=== PATIENT | female | born 1990 | race Caucasian/White ===

== ENCOUNTER → 2018-11-30 | Outpatient (REF) | payer BC | LOC: M LAB REF 16:29 | PROVIDERS: ATTEND Nurse Practitioner Women's Health | DX: Z34.03 Encounter for supervision of normal first pregnancy, third trimester (principal); Z3A.00 Weeks of gestation of pregnancy not specified ==

== ENCOUNTER → 2019-05-05 | Outpatient (REF) | payer BC ==
[2019-05-05 14:27] LABS: APPEARANCE, URINE HAZY (CLEAR); BACTERIA, URINE AUTO 1+ (NEGATIVE); BILIRUBIN, URINE AUTO NEGATIVE (NEGATIVE); BLOOD, URINE BLOOD NEGATIVE (NEGATIVE); COLOR, URINE YELLOW (YELLOW); GLUCOSE, URINE (UA) AUTO NEGATIVE (NEGATIVE); KETONE, URINE AUTO NEGATIVE (NEGATIVE); LEUKOCYTE ESTERASE, URINE AUTO 1+ (NEGATIVE); MUCUS, URINE SMALL (NEGATIVE); NITRITE, URINE AUTO NEGATIVE (NEGATIVE); PROTEIN, URINE AUTO NEGATIVE (NEGATIVE); RBC, URINE AUTO 3 /HPF (0-3); SPECIFIC GRAVITY URINE AUTO 1.009 (1.002-1.035); SQUAMOUS EPITHELIAL CELL UR AU 5 /HPF (0-6); UROBILINOGEN, URINE AUTO 0.2 mg/dL (0.0-2.0); WBC, URINE AUTO 3 /HPF (0-3)
== END ==
LOC: M LAB REF 13:00
PROVIDERS: ATTEND Physician Assistant
DX: N39.0 Urinary tract infection, site not specified (principal)

== ENCOUNTER → 2020-04-14 | Outpatient (CLI) | payer BC ==
--- NOTE | 2020-04-14 10:38 | REP ---
TWIN OB ULTRASOUND: Real-time sonographic evaluation of the gravid uterus performed. There is a diamniotic, dichorionic twin gestation. Fetus A demonstrates a crown-rump length of 18 mm corresponding to the estimated gestational age of 8 weeks 2 days, EDC 11/22/2020. heart rate is 167 beats per minute. Fetus B demonstrates a mean sac diameter of 14 mm corresponding to 5 weeks 4 days, gestational age and a crown-rump length of 14 mm corresponding to 7 weeks 5 days gestational age. No heart motion is detected compatible with demise of fetus B. No subchorionic hemorrhage is seen. Blood flow is seen in each ovary with duplex Doppler evaluation, with no torsion. Cystic structure left ovary may represent a corpus luteum with a maximum diameter of 2.1 cm.
== END ==
LOC: M WHC 08:16
PROVIDERS: ATTEND Advanced Practice Midwife
DX: O30.041 Twin pregnancy, dichorionic/diamniotic, first trimester (principal); Z3A.01 Less than 8 weeks gestation of pregnancy

== ENCOUNTER → 2020-04-25 | Outpatient (REF) | payer BC ==
[2020-04-25 13:05] LABS: HEMATOCRIT 38.9 % (36.0-47.0); HEMOGLOBIN 12.7 g/dl (12.0-15.5); MEAN CORPUSCULAR HEMOGLOBIN 28.1 pg (27.0-33.0); MEAN CORPUSCULAR HGB CONC 32.6 g/dl (32.0-36.5); MEAN CORPUSCULAR VOLUME 86.1 fl (80.0-96.0); PLATELET COUNT, AUTOMATED 300 10^3/uL (150-450); RED BLOOD COUNT 4.52 10^6/uL (4.00-5.40)
[2020-04-25 15:15] LABS: CHLAMYDIA DNA AMPLIFICATION NEGATIVE (NEGATIVE); GC DNA AMPLIFICATION NEGATIVE (NEGATIVE)
[2020-04-26 11:39] LABS: HEPATITIS C VIRUS ABY INDEX 0.1 INDEX (<0.8); HIV 1&2 SCREEN CENTAUR NEGATIVE (NEGATIVE)
== END ==
LOC: M PLALAB 09:33
PROVIDERS: ATTEND Advanced Practice Midwife
DX: O30.041 Twin pregnancy, dichorionic/diamniotic, first trimester (principal); Z3A.00 Weeks of gestation of pregnancy not specified

== ENCOUNTER → 2020-09-05 | Outpatient (REF) | payer BC ==
[2020-09-05 13:44] LABS: HEMATOCRIT 34.5 % (36.0-47.0); HEMOGLOBIN 11.2 g/dl (12.0-15.5); MEAN CORPUSCULAR HEMOGLOBIN 28.7 pg (27.0-33.0); MEAN CORPUSCULAR HGB CONC 32.5 g/dl (32.0-36.5); MEAN CORPUSCULAR VOLUME 88.5 fl (80.0-96.0); PLATELET COUNT, AUTOMATED 274 10^3/uL (150-450); WHITE BLOOD COUNT 9.9 10^3/uL (4.0-10.0)
== END ==
LOC: M PLALAB 08:44
PROVIDERS: ATTEND Advanced Practice Midwife
DX: Z34.82 Encounter for supervision of other normal pregnancy, second trimester (principal); Z3A.00 Weeks of gestation of pregnancy not specified
CPT/HCPCS: 36415; 82950; 85027; 86850; 86900; 86901; J2790

== ENCOUNTER → 2020-10-26 | Outpatient (REF) | payer BC | LOC: M SFHCWAGY 13:23 | PROVIDERS: ATTEND Advanced Practice Midwife | DX: O99.213 Obesity complicating pregnancy, third trimester (principal); Z3A.00 Weeks of gestation of pregnancy not specified; E66.9 Obesity, unspecified ==

== ENCOUNTER 2020-11-19 16:50 | Inpatient (IN) | payer BC ==
[~2020-11-19] VITALS: Ht 162.6 cm; Wt 106.0 kg
[2020-11-19 17:24] VITALS: BP 130/86
[2020-11-19] MEDS ORDERED: PRENTAB9 PO (17:25)
--- OUTSIDE RECORDS SUMMARY | 2020-11-19 18:48 | CCD ---
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 Name Role Phone Elida Rios Unavailable PROBLEMS Type Condition ICD9-CM Code [id number] Code Onset Dates Condition S tatus SNOMED Code Notes Problem Supervision of other normal Z34.80 Ac tive 997284859 Problem Obesity affecting in third trimester O99 .213 Active [id number] ALLERGIES Allergen (clinical drug ingredient) Drug/Non Drug Allergy do cumented on EMR Reaction Allergy Type Onset Date Status erythromycin Erythromycin([facility] Code:[address]-11) hives Drug All ergy Active ENCOUNTERS from 1988 to 2020-10-25 Encounter Location Date Provider Diagnosis [facility] [address] [place] [address] Oct, Elida Rios 35 weeks gestation o f Z3A.35 and Obesity affecting in third trimester O99.213 IMMUNIZATIONS Vaccine Route Administration Date Status RHo (D) Immune Globulin 300mcg/1.5mL (RhoGAM) IM Intramuscular D ec 2019 Administered TDAP 0.5mL (Boostrix) IM Intramuscular Sep 19, 2020 Administe red Influenza (6mo & up) Fluzone IM Intramuscular Jul 11, 2020 Pe nding SOCIAL HISTORY Tobacco Use: Social History Observation Description Date Details (start date - stop date) Never Smoker Sex Assigned At : Social History Observation Description Sex Assigned At Unknown Education: Question Answer Notes Level of Education: Master's Degree Domestic Violence: Question Answer Notes Status: No history of abuse Sexual Hx: Question Answer Notes Had sex in the last 12 months (vaginal, oral, or anal)? Yes Have you ever had an STD? No with Women only Use protection? No Alcohol Screening: Question Answer Notes Did you have a drink containing alcohol in the past year? Ye s Points 2 Interpretation Negative How often did you have six or more drinks on one occas ion in the past year? Never (0 points) How many drinks did you have on a typica l day when you were drinking in the past year? 1 or 2 (0 points) How often did you have a drink containing alcohol in t he past year? Two to four times a month (2 points) Tobacco Use: Question Answer Notes Are you a: never smoker REASON FOR REFERRAL No Information VITAL SIGNS Weight 231.8 lbs Oct, Height 64 in Oct, BMI 39.788 kg/m2 Oct, Blood pressure systolic 116 mm Hg Oct, Blood pressure diastolic 72 mm Hg Oct, MEDICATIONS Medication SIG (Take, Route, Frequency, Duration) Notes Start Da te End Date Status 27-1 MG 1 tablet Orally Once a day Active Zofran 4 MG 1 tablet Orally every 8 hours as needed for nausea Not-Taking PROCEDURES No Information RESULTS No Results REASON FOR VISIT 2WK PN MEDICAL (GENERAL) HISTORY Type Description Date Medical History obesity Surgical History wisdom teeth extract Hospitalization History childbirth Goals Section No Information Health Concerns No Information MEDICAL EQUIPMENT No Information MENTAL STATUS No Information FUNCTIONAL STATUS No Information ASSESSMENTS Encounter Date Diagnosis Assessment Notes Treatment Notes Treatm ent Clinical Notes Oct, 35 weeks gestation of (ICD-10 - Z3A.35 ) Oct, Obesity affecting in [facility] (ICD-10 - O99.213) PLAN OF TREATMENT Next Appt Details 1 Week Reason:PN Provider Name:Elida Ladonna Rios, 2020-10-26 08:00:00 AM, [address] [place], [address], Follow Up:1 WeekPN Insurance Providers Payer Name Payer Address Payer Phone Insured Name Patient Relati onship to Insured Coverage Start Date Coverage End Date BCBS [place] PPO [phone] [facility] [employer] [place] [address] CHAPO GIFFORD
--- OUTSIDE RECORDS SUMMARY | 2020-11-19 18:48 | CCD ---
Author Author [facility] Organization [facility] Address Unknown Phone Unavailable Support Name Relationship Address Phone STERLING GIFFORD Next Of Kin Unknown JOSEY GIFFORD Next Of Kin [address] [place] [address] TANYA GIFFORD Next Of Kin Unknown CHAPO LABOY Next Of Kin [address] [id number] JOSEY GIFFORD ECON [address] [place] [address] Unavailable Re-disclosure Warning The records that you are about to access may contain information from federally-assisted alcohol or drug abuse programs. If such information is present, then the following federally mandated warning applies: This information has been disclosed to you from records protected by federal confidentiality rules (42 CFR part 2). The federal rules prohibit you from making any further disclosure of this information unless further disclosure is expressly permitted by the written consent of the person to whom it pertains or as otherwise permitted by 42 CFR part 2. A general authorization for the release of medical or other information is NOT sufficient for this purpose. The Federal rules restrict any use of the information to criminally investigate or prosecute any alcohol or drug abuse patient.The records that you are about to access may contain highly sensitive health information, the redisclosure of which is protected by Article 27-F of the [facility] Public Health law. If you continue you may have access to information: Regarding HIV / AIDS; Provided by facilities licensed or operated by the [facility] Office of Mental Health; or Provided by the [facility] Office for People With Developmental Disabilities. If such information is present, then the following [facility] mandated warning applies: This information has been disclosed to you from confidential records which are protected by state law. State law prohibits you from making any further disclosure of this information without the specific written consent of the person to whom it pertains, or as otherwise permitted by law. Any unauthorized further disclosure in violation of state law may result in a fine or chcf sentence or both. A general authorization for the release of medical or other information is NOT sufficient authorization for further disc losure. Family History Family Member Name Family Member Gender Family Member Status Date o f Status Description Data Source(s) Unknown Unknown Problem MEDENT ([facility]) Unknown Female Problem MEDENT ([facility]) Encounters Encounter Providers Location Date Indications Data Source(s ) ( ESTOB) [facility] [address] [place] [address] 10/26/2020 12:00:00 AM EST eCW1 ([facility]) ( ESTOB) [facility] [address] [place] [address] 10/19/2020 12:00:00 AM EST eCW1 ([facility]) ( ESTOB) [facility] [address] [place] [address] 10/03/2020 12:00:00 AM EST eCW1 ([facility]) ( ESTOB) [facility] [place] [address] [place] [address] 09/19/2020 12:00:00 AM EST eCW1 ([facility]) ( ESTOB) [facility] [address] [place] [address] 09/05/2020 12:00:00 AM EST eCW1 ([facility]) ( ESTOB) [facility] [address] [place] [address] 08/08/2020 12:00:00 AM EST eCW1 ([facility]) ( ESTOB) [facility] [place] [address] [place] [address] 07/11/2020 12:00:00 AM EDT eCW1 ([facility]) Immunizations Vaccine Date Status Description Data Source(s) Tdap 09/19/2020 08:40:00 AM EST completed e CW1 ([facility]) Tdap 09/19/2020 08:40:00 AM EST completed e CW1 ([facility]) Tdap 09/19/2020 08:40:00 AM EST completed e CW1 ([facility]) Tdap 09/19/2020 08:40:00 AM EST completed e CW1 ([facility]) RHo (D) Immune Globulin 300mcg/1.5mL (RhoGAM) 09/19/2020 08: 33:00 AM EST completed eCW1 ([facility]) RHo (D) Immune Globulin 300mcg/1.5mL (RhoGAM) 09/19/2020 08: 33:00 AM EST completed eCW1 ([facility]) RHo (D) Immune Globulin 300mcg/1.5mL (RhoGAM) 09/19/2020 08: 33:00 AM EST completed eCW1 ([facility]) RHo (D) Immune Globulin 300mcg/1.5mL (RhoGAM) 09/19/2020 08: 33:00 AM EST completed eCW1 ([facility]) INFLUENZA VIRUS VACCINE QUADRIVAL [id number](6 MOS AND UP)/PF 10/05/2019 12:00:00 AM EST completed [facility] Medications Medication Brand Name Start Date Product Form Dose Route Admi nistrative Instructions Pharmacy Instructions Status Indications Reaction Description Data Source(s) 0.35 mg 02/08/2019 12:00:00 AM EDT tablet 84 TAKE ONE TABLET BY MOUTH EVERY DAY TAKE ONE TABLET BY MOUTH EVERY DAY SOLD: 09/27/2019 [facility] Insurance Providers Payer name Policy type / Coverage type Policy ID Covered constitution party ID Covered constitution party's relationship to green Policy Green Plan Information BCBS [place] PPO [phone] [id number] SP [id number] BCBS [place] PPO [phone] [id number] SP [id number] EXCELLUS BCBS B [id number] S [id number] EXCELLUS [facility] [id number] 18 [id number] Excell[employer] [facility] Commercial [id number] Self [id number] BLUE CROSS BLUE SHIELD -O/P BS [id number] 18 [id number] Excell[employer] CN[facility] Commercial [id number] Self [id number] BLUE CROSS BLUE SHIELD -PHYSICIAN BS [id number] 18 [id number] BLUE CROSS BLUE SHIELD -I/P BS [id number] 18 [id number] Excell[employer] [facility] Commercial [id number] Self [id number] Excell[employer] [facility] [id number] Self [id number] Excell[employer] [facility] Commercial [id number] Self [id number] BCBS/[employer]cell[employer] Commercial [id number] Self [id number] BCBS/[employer] Commercial [id number] Self [id number] [id number] Excell[employer] [facility] Commercial [id number] Self [id number] Excell[employer] [facility] [facility] Commercial [id number] Self [id number] [employer] [facility] Commercial [id number] Self [id number] BLUE CROSS BLUE SHIELD -O/P [id number] 18 [id number] BLUE CROSS BLUE SHIELD -O/P [id number] 18 [id number] Excell[employer] CNY Blueshield Commercial Self EXCELLUS CNY [facility] BS [id number] 18 [id number] BCBS/Excell[employer] Commercial Self BLUE CROSS BLUE SHIELD -CLINIC [id number] 1 8 [id number] BLUE CROSS BLUE SHIELD -CLINIC [id number] 1 8 [id number] [facility]- [id number] 18 [id number] [facility] [id number] 1 8 [id number] Problems, Conditions, and Diagnoses Code Display Name Description Problem Type Effective Dates Data Source(s) E66.01 [id number] Morbid (severe) obesity due to excess adriana ories Problem 10/26/2020 12:00:00 AM EST eCW1 ([facility]) Z68.41 154151608 BMI 40.0-44.9, adult Problem 10/26/2020 12:0 0:00 AM EST eCW1 ([facility]) O99.213 [id number] Obesity affecting in third trim thiago Problem 10/19/2020 12:00:00 AM EST eCW1 ([facility]) Z34.80 care Supervision of other normal Mary ling 03/21/2020 12:00:00 AM EDT eCW1 ([facility]) Surgeries/Procedures Procedure Description Date Indications Data Source(s) NONSTRESS TEST 10/03/2020 12:00:00 AM EST eCW1 ([facility]) Injection: RhoGAM 300mcg/1.5mL IM (Rho [D] Immune Globulin H uman) 09/19/2020 12:00:00 AM EST eCW1 ([facility]) Immunization: Boostrix 0.5mL IM (TDAP) 09/19/2020 12:0 0:00 AM EST eCW1 ([facility]) INFLUENZA VIRUS VACC SPLIT PRSRV FREE 3 YRS/> IM 07/11 12:00:00 AM EDT eCW1 ([facility]) Results ID Date Data Source GROUP B STREP CULTURE 10/26/2020 12:00:00 AM EST eCW1 ([facility]) Name Value Range Interpretation Code Description Data Destiny rce(s) Supporting Document(s) GROUP B STREP CULTURE eCW1 ([facility]) ID Date Data Source [id number] 07/04/2020 12:00:00 AM EDT [facility] ology Imaging Viri Norman Cnm Patient Name: BLAKE GIFFORD [facility] 1990[facility] [address] Date of Exam: 07/04/2020PH#: Fax: [phone] EXAM: US OB 2ND & 3RD TRIMESTER, COMPLETE- SINGLE FETUSCLINICAL INFORMATION: Supervision of . 2, Para 1LMP: 02/12/2020 = 20 weeks 3 days, AR[place](LMP) = 11/18/2020Today's sono findings = 20 weeks 3 days, [place] (today's sono) = 11/18/2020Fetal Number: SingletonFetal Position: VertexFetal Heart Rate: 139 BPMPlacental Position: Anterior, Grade 1Amniotic Fluid Volume: NormalCervix Length: 5.2 cmFETAL MEASUREMENTS:BPD: 4.7 cm = 20 weeks 2 daysHC: 17.7 cm = 20 weeks 1 dayAC: 14.9 cm = 20 weeks 1 dayFL: 3.3 cm = 20 weeks 3 daysHL: 3.3 cm = 21 weeks 1 dayEstimated Weight: 342 grams, 12 ounces, 41st percentileThe following structures are visualized and are unremarkable:Cranium, cavum, cerebellum, posterior fossa- cisterna magna, choroid plexus,midline falx, lateral ventricles, orbits, face- profile, face-lips/mouth,neck, 4-chamber heart, RVOT, LVOT, diaphragm, stomach, kidneys, bladder,abdominal wall, cord insertion, umbilical arteries, 3-vessel cord, colorDoppler, spine and upper and lower extremities.Accredited by the [employer] in Obstetrical Ultrasound.JOHNNY Branham/Tra you for referring CHAPO GIFFORD to our office. Electronically Signed - MAYLIN JACKSON DO 07/04/20 16:28 Name Value Range Interpretation Code Description Data Destiny rce(s) Supporting Document(s) Procedure Social History Code Duration Value Status Description Data Source(s ) Smoking 10/26/2020 12:00:00 AM EST Never Smoker completed Never S moker eCW1 ([facility]) Smoking 10/21/2020 12:00:00 AM EST Never Smoker completed Never S moker eCW1 ([facility]) Smoking 10/02/2020 12:00:00 AM EST Never Smoker completed Never S moker eCW1 ([facility]) Smoking 09/18/2020 12:00:00 AM EST Never Smoker completed Never S moker eCW1 ([facility]) Smoking 08/30/2020 12:00:00 AM EST Never Smoker completed Never S moker eCW1 ([facility]) Smoking 08/08/2020 12:00:00 AM EST Never Smoker completed Never S moker eCW1 ([facility]) Smoking 08/08/2020 12:00:00 AM EST Never Smoker completed Never S moker eCW1 ([facility]) Vital Signs ID Date Data Source UNK Name Value Range Interpretation Code Description Data Source(s) Diastolic blood pressure 76 mm[Hg] 76 mm[Hg] eCW1 ([facility]) Systolic blood pressure 124 mm[Hg] 124 mm[Hg] e CW1 ([facility]) Body mass index (BMI) [Ratio] 40.097 kg/m2 40.0 97 kg/m2 W1 ([facility]) Body height 64 [in_i] 64 [in_i] eCW1 ([facility]) Body weight 233.6 [lb_av] 233.6 [lb_av] eCW1 ([facility]) Diastolic blood pressure 72 mm[Hg] 72 mm[Hg] eCW1 ([facility]) Systolic blood pressure 116 mm[Hg] 116 mm[Hg] e CW1 ([facility]) Body mass index (BMI) [Ratio] 39.788 kg/m2 39.7 88 kg/m2 eCW1 ([facility]) Body height 64 [in_i] 64 [in_i] eCW1 ([facility]) Body weight 231.8 [lb_av] 231.8 [lb_av] eCW1 ([facility]) Diastolic blood pressure 68 mm[Hg] 68 mm[Hg] eCW1 ([facility]) Systolic blood pressure 114 mm[Hg] 114 mm[Hg] e CW1 ([facility]) Body mass index (BMI) [Ratio] 39.445 kg/m2 39.4 45 kg/m2 eCW1 ([facility]) Body height 64 [in_i] 64 [in_i] eCW1 ([facility]) Body weight 104.24 kg 104.24 kg eCW1 ([facility]) Body weight 229.8 [lb_av] 229.8 [lb_av] eCW1 ([facility]) Diastolic blood pressure 74 mm[Hg] 74 mm[Hg] eCW1 ([facility]) Systolic blood pressure 122 mm[Hg] 122 mm[Hg] e CW1 ([facility]) Body mass index (BMI) [Ratio] 39.067 kg/m2 39.0 67 kg/m2 W1 ([facility]) Body height 64 [in_i] 64 [in_i] eCW1 ([facility]) Body weight 227.6 [lb_av] 227.6 [lb_av] eCW1 ([facility]) Diastolic blood pressure 70 mm[Hg] 70 mm[Hg] eCW1 ([facility]) Systolic blood pressure 120 mm[Hg] 120 mm[Hg] e CW1 ([facility]) Body mass index (BMI) [Ratio] 38.484 kg/m2 38.4 84 kg/m2 W1 ([facility]) Body height 64 [in_i] 64 [in_i] eCW1 ([facility]) Body weight 101.7 kg 101.7 kg eCW1 ([facility]) Body weight 224.2 [lb_av] 224.2 [lb_av] eCW1 ([facility]) Diastolic blood pressure 72 mm[Hg] 72 mm[Hg] eCW1 ([facility]) Systolic blood pressure 120 mm[Hg] 120 mm[Hg] e CW1 ([facility]) Body mass index (BMI) [Ratio] 37.591 kg/m2 37.5 91 kg/m2 eCW1 ([facility]) Body height 64 [in_i] 64 [in_i] eCW1 ([facility]) Body weight 219 [lb_av] 219 [lb_av] eCW1 ([facility]) Diastolic blood pressure 80 mm[Hg] 80 mm[Hg] eCW1 ([facility]) Systolic blood pressure 112 mm[Hg] 112 mm[Hg] e CW1 ([facility]) Body mass index (BMI) [Ratio] 37.042 kg/m2 37.0 42 kg/m2 eCW1 ([facility]) Body height 64 [in_i] 64 [in_i] eCW1 ([facility]) Body weight 97.89 kg 97.89 kg eCW1 ([facility]) Body weight 215.8 [lb_av] 215.8 [lb_av] eCW1 ([facility]) Patient Treatment Plan of Care Planned Activity Planned Date Details Description Data Source (s) New in 2011. IIV4 07/11/2020 12:16:00 PM EDT eCW1 ([facility]) New in 2011. IIV4 07/11/2020 12:16:00 PM EDT eCW1 ([facility]) New in 2011. IIV4 07/11/2020 12:16:00 PM EDT eCW1 ([facility]) New in 2011. IIV4 07/11/2020 12:16:00 PM EDT eCW1 ([facility]) New in 2011. IIV4 07/11/2020 12:16:00 PM EDT eCW1 ([facility]) New in 2011. IIV4 07/11/2020 12:16:00 PM EDT eCW1 ([facility]) New in 2011. IIV4 07/11/2020 12:16:00 PM EDT eCW1 ([facility])
--- OUTSIDE RECORDS SUMMARY | 2020-11-19 18:48 | CCD ---
Author Author [facility] Organization [facility] Address Unknown Phone Unavailable Care Team Providers Care Commodities Manager Name Role Phone Elida Rios Unavailable PROBLEMS Type Condition ICD9-CM Code [id number] Code Onset Dates Condition S tatus W/U Status Risk SNOMED Code Notes Problem BMI 40.0-44.9, adult Z68.41 Active confirmed 202665907 Problem Morbid (severe) obesity due to excess calories E66 .01 Active confirmed 894499443 Problem Supervision of other normal Z34.80 Ac tive confirm 546648651 Problem Obesity affecting in third trimester O99 .213 Active confirmed 303985710113 ALLERGIES Allergen (clinical drug ingredient) Drug/Non Drug Allergy do cumented on EMR Reaction Allergy Type Onset Date Status erythromycin Erythromycin([facility] Code:[address]-02) hives Drug All ergy Active ENCOUNTERS from 1988 to 2020-11-06 Encounter Location Date Provider Diagnosis [facility] [address] [place] [address] Oct, Elida Rios Obesity affecting pr egnancy in third trimester O99.213 ; 36 weeks gestation of Z3A.36 ; Morbid (severe) obesity due to excess calories E66.01 and BMI 40.0-44.9, adult Z68.41 IMMUNIZATIONS Vaccine Route Administration Date Status RHo [...] FOR REFERRAL No Information VITAL SIGNS Weight 233.6 lbs Oct, Height 64 in Oct, BMI 40.097 kg/m2 Oct, Blood pressure systolic 124 mm Hg Oct, Blood pressure diastolic 76 mm Hg Oct, MEDICATIONS Medication SIG (Take, Route, Frequency, Duration) Notes Start Da te End Date Status 27-1 MG 1 tablet Orally Once a day Active Zofran 4 MG 1 tablet Orally every 8 hours as needed for nausea Not-Taking PROCEDURES No Information RESULTS Component Value Reference Range GROUP B STREP CULTURE Reviewed date:10/28/2020 21:33:42 Interpretation: Performing Lab:[facility], [facility] [address] [address] , ,[place] [address] REASON FOR VISIT 1WK PN MEDICAL (GENERAL) HISTORY Type Description Date Medical History obesity Surgical History wisdom teeth extract Hospitalization History childbirth Goals Section No Information Health Concerns No Information MEDICAL EQUIPMENT No Information MENTAL STATUS No Information FUNCTIONAL STATUS No Information ASSESSMENTS Encounter Date Diagnosis Assessment Notes Treatment Notes Treatm ent Clinical Notes Oct, Obesity affecting in [facility] (ICD-10 - O99.213) Oct, 36 weeks gestation of (ICD-10 - Z3A.36 ) Oct, Morbid (severe) obesity due to excess calories ( ICD-10 - E66.01) Oct, BMI 40.0-44.9, adult (ICD-10 - Z68.41) PLAN OF TREATMENT Next Appt Details 1 Week Reason: Provider Name:Rachel Jacques, 2020-11-09 10:00:00 AM, [address] [place], [address], Follow Up:1 Weekprenatal Insurance Providers Payer Name Payer Address Payer Phone Insured Name Patient Relati onship to Insured Coverage Start Date Coverage End Date [employer]BS [facility] [id number] [facility] RANDALL PORTILLO [facility] [id number] CHAPO GIFFORD
--- OUTSIDE RECORDS SUMMARY | 2020-11-19 18:48 | CCD ---
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 Name Role Phone Rachel Jacques Unavailable PROBLEMS Type Condition ICD9-CM Code [id number] Code Onset Dates Condition S tatus SNOMED Code Notes Problem Supervision of other normal Z34.80 Ac tive [id number] ALLERGIES Allergen (clinical drug ingredient) Drug/Non Drug Allergy do cumented on EMR Reaction Allergy Type Onset Date Status erythromycin Erythromycin([facility] Code:[address]-94) hives Drug All ergy Active ENCOUNTERS from 1988 to 2020-08-23 Encounter Location Date Provider Diagnosis [facility] [address] [place] [phone] Aug, Rachel Jacques 24 weeks gestatio n of Z3A.24 ; Other specified related conditions, second trimester O26.892 and Low back pain M54.5 IMMUNIZATIONS Vaccine Route Administration Date Status Influenza (6mo & up) Fluzone IM Intramuscular [...] FOR REFERRAL No Information VITAL SIGNS Weight 219 lbs Aug, Height 64 in Aug, BMI 37.591 kg/m2 Aug, Blood pressure systolic 120 mm Hg Aug, Blood pressure diastolic 72 mm Hg Aug, MEDICATIONS Medication SIG (Take, Route, Frequency, Duration) Notes Start Da te End Date Status Zofran 4 MG 1 tablet Orally every 8 hours as needed for nausea Not-Taking 27-1 MG 1 tablet Orally Once a day Active PROCEDURES No Information RESULTS No Results REASON FOR VISIT 4 WK PN MEDICAL (GENERAL) HISTORY Type Description Date Medical History obesity Surgical History wisdom teeth extract Hospitalization History childbirth Goals Section No Information Health Concerns No Information MEDICAL EQUIPMENT No Information MENTAL STATUS No Information FUNCTIONAL STATUS No Information ASSESSMENTS Encounter Date Diagnosis Assessment Notes Treatment Notes Treatm ent Clinical Notes Aug, 24 weeks gestation of (ICD-10 - Z3A.24 ) Aug, Other specified re lated conditions, second trimester (ICD-10 - O26.892) Aug, Low back pain (ICD-10 - M54.5) PLAN OF TREATMENT Treatment Notes Test Name Order Date CBC - Complete Blood Count 2020-08-23 AB SCREEN (INDIRECT ALONDRA)GEL Antibody Screen 2020-08 Type and Screen (D Rh Antibody Screen) 2020-08-23 Glucose Challenge Test 1 Hour 2020-08-23 RHRHOGAM 2020-08-23 RHOGAM 2020-08-23 Next Appt Details 4 Weeks Reason:return ob Provider Name:Sarah Norman, 2020-09-05 0 8:40:00 AM, [address] [place], [address], Follow Up:4 Weeksreturn ob Insurance Providers Payer Name Payer Address Payer Phone Insured Name Patient Relati onship to Insured Coverage Start Date Coverage End Date BCBS VANIA GALVEZ PPO [phone] [facility] [address] [facility] [id number] [place]FF[place] self
--- OUTSIDE RECORDS SUMMARY | 2020-11-19 18:48 | CCD ---
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 Name Role Phone Sarah Norman Unavailable PROBLEMS Type Condition ICD9-CM Code [id number] Code Onset Dates Condition S tatus SNOMED Code Notes Problem Supervision of other normal Z34.80 Ac tive [id number] ALLERGIES Allergen (clinical drug ingredient) Drug/Non Drug Allergy do cumented on EMR Reaction Allergy Type Onset Date Status erythromycin Erythromycin([facility] Code:[address]-12) hives Drug All ergy Active ENCOUNTERS from 1988 to 2020-09-07 Encounter Location Date Provider Diagnosis [facility] [address] [place] [phone] Sep, Sarah Norman Encounter for superv ision of normal in multigravida in third trimester Z34.83 IMMUNIZATIONS Vaccine Route Administration Date Status Influenza [...] FOR REFERRAL No Information VITAL SIGNS Weight 224.2 lbs Sep, Weight-kg 101.7 kg Sep, Height 64 in Sep, BMI 38.484 kg/m2 Sep, Blood pressure systolic 120 mm Hg Sep, Blood pressure diastolic 70 mm Hg Sep, MEDICATIONS Medication SIG (Take, Route, Frequency, Duration) [...] Notes Treatment Notes Treatm ent Clinical Notes Sep, Encounter for supervision of normal in multigravida in third trimester (ICD-10 - Z34.83) PLAN OF TREATMENT Next Appt Details 2 Weeks Reason: Provider Name:Elysia uBrt, 2020-09 08:20:00 AM, [address] [place], [address], Insurance Providers Payer Name Payer Address Payer Phone Insured Name Patient Relati onship to Insured Coverage Start Date Coverage End Date BCBS [place] PPO [phone] [facility] [place] [address] [facility] [id number] CHAPO GIFFORD
--- OUTSIDE RECORDS SUMMARY | 2020-11-19 18:48 | CCD ---
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 Name Role Phone Sarah Norman Unavailable PROBLEMS Type Condition ICD9-CM Code [id number] Code Onset Dates Condition S tatus SNOMED Code Notes Problem Supervision of other normal Z34.80 Ac tive [id number] ALLERGIES Allergen (clinical drug ingredient) Drug/Non Drug Allergy do cumented on EMR Reaction Allergy Type Onset Date Status erythromycin Erythromycin([facility] Code:[address]-43) hives Drug All ergy Active ENCOUNTERS from 1988 to 2020-10-04 Encounter Location Date Provider Diagnosis [facility] [place] [address] Sep, Sarah Emerson Dichorionic diamniot ic twin in third trimester O30.043 and 32 weeks gestation of Z3A.32 IMMUNIZATIONS Vaccine Route Administration Date Status RHo [...] FOR REFERRAL No Information VITAL SIGNS Weight 229.8 lbs Sep, Weight-kg 104.24 kg Sep, Height 64 in Sep, BMI 39.445 kg/m2 Sep, Blood pressure systolic 114 mm Hg Sep, Blood pressure diastolic 68 mm Hg Sep, MEDICATIONS Medication SIG (Take, Route, Frequency, Duration) Notes Start Da te End Date Status Zofran 4 MG 1 tablet Orally every 8 hours as needed for nausea Not-Taking 27-1 MG 1 tablet Orally Once a day Active PROCEDURES from 1988 to 2020-10-04 Procedure Date Ordered Result Body Site non-stress test 2020-10-03 N/A RESULTS No Results REASON FOR VISIT 4 WK PN MEDICAL (GENERAL) HISTORY Type Description Date Medical History obesity Surgical History wisdom teeth extract Hospitalization History childbirth Goals Section No Information Health Concerns No Information MEDICAL EQUIPMENT No Information MENTAL STATUS No Information FUNCTIONAL STATUS No Information ASSESSMENTS Encounter Date Diagnosis Assessment Notes Treatment Notes Treatm ent Clinical Notes Sep, Dichorionic diamniotic twin in third trimester (ICD-10 - O30.043) Sep, 32 weeks gestation of (ICD-10 - Z3A.32 ) PLAN OF TREATMENT Next Appt Details 2 Weeks Reason: Provider Name:Elida Ladonna Rios, 2020-10-19 09:00:00 AM, [address] [place], [address], Insurance Providers Payer Name Payer Address Payer Phone Insured Name Patient Relati onship to Insured Coverage Start Date Coverage End Date [facility] [place] [facility] [phone] [facility] [employer] [place] [address] CHAPO GIFFORD
--- OUTSIDE RECORDS SUMMARY | 2020-11-19 18:48 | CCD ---
Author Author [facility] Organization [facility] Address Unknown Phone Unavailable Care Team Providers Care Regulatory Coordinator Name Role Phone Elysia Burt Unavailable PROBLEMS Type Condition ICD9-CM Code [id number] Code Onset Dates Condition S tatus SNOMED Code Notes Problem Supervision of other normal Z34.80 Ac tive [id number] ALLERGIES Allergen (clinical drug ingredient) Drug/Non Drug Allergy do cumented on EMR Reaction Allergy Type Onset Date Status erythromycin Erythromycin([facility] Code:[address]-28) hives Drug All ergy Active ENCOUNTERS from 1988 to 2020-09-26 Encounter Location Date Provider Diagnosis [facility] [address] [place] [phone] Sep, Elysia Burt Maternal care for an ti-D [Rh] antibodies, third trimester, not applicable or unspecified O36.0130 ; 30 weeks gestation of Z3A.30 and Encounter for immunization Z23 IMMUNIZATIONS Vaccine Route Administration Date Status RHo [...] FOR REFERRAL No Information VITAL SIGNS Weight 227.6 lbs Sep, Height 64 in Sep, BMI 39.067 kg/m2 Sep, Blood pressure systolic 122 mm Hg Sep, Blood pressure diastolic 74 mm Hg Sep, MEDICATIONS Medication SIG (Take, Route, Frequency, Duration) Notes Start Da te End Date Status Zofran 4 MG 1 tablet Orally every 8 hours as needed for nausea Not-Taking 27-1 MG 1 tablet Orally Once a day Active PROCEDURES from 1988 to 2020-09-26 Procedure Date Ordered Result Body Site Immunization: Boostrix 0.5mL IM (TDAP) 2020-09-19 N/A Injection: RhoGAM 300mcg/1.5mL IM (Rho [D] Immune Globulin H uman) 2020-09-19 N/A RESULTS No Results REASON FOR VISIT 4 WK PN MEDICAL (GENERAL) HISTORY Type Description Date Medical History obesity Surgical History wisdom teeth extract Hospitalization History childbirth Goals Section No Information Health Concerns No Information MEDICAL EQUIPMENT No Information MENTAL STATUS No Information FUNCTIONAL STATUS No Information ASSESSMENTS Encounter Date Diagnosis Assessment Notes Treatment Notes Treatm ent Clinical Notes Sep, Maternal care for anti-D [Rh ] antibodies, third trimester, not applicable or unspecified (ICD-10 - O36.0130) Sep, 30 weeks gestation of (ICD-10 - Z3A.30 ) Sep, Encounter for immunization (ICD-10 - Z23) PLAN OF TREATMENT Next Appt Details 2 Weeks Reason:PN Provider Name:Sarah Norman, 2020-10-03 1 1:00:00 AM, [address] [place], [address], Follow Up:2 WeeksPN Insurance Providers Payer Name Payer Address Payer Phone Insured Name Patient Relati onship to Insured Coverage Start Date Coverage End Date BCBS VANIA GALVEZ O [phone] [facility] [place] [id number] CHAPO GIFFORD self
[2020-11-19] MEDS ORDERED: LACTATED RINGER'S 1000 ML IV STA (18:54)
[2020-11-19] MEDS ORDERED: LR 1,000 ML IV SCH (18:54)
[2020-11-19] MEDS ORDERED: OXYTOCIN DRIP 30 UNITS in IV 1 EA IV SCH (19:00)
[2020-11-19 19:39] LABS: HEMATOCRIT 36.3 % (36.0-47.0); HEMOGLOBIN 11.9 g/dl (12.0-15.5); MEAN CORPUSCULAR HGB CONC 32.8 g/dl (32.0-36.5); MEAN CORPUSCULAR VOLUME 82.3 fl (80.0-96.0); PLATELET COUNT, AUTOMATED 278 10^3/uL (150-450); RED BLOOD COUNT 4.41 10^6/uL (4.00-5.40); WHITE BLOOD COUNT 10.1 10^3/uL (4.0-10.0)
--- NOTE | 2020-11-19 20:30 | HPEPDOC ---
Obstetrical History & Physical General Date of Admission Nov 19, 2020 at 18:43 History of Present Illness 30-year-old G2, P1001 at 39+4 weeks gestation. Presents with frequent, painful uterine contractions over the past several hours. Denies any loss of fluid or vaginal bleeding. Reports regular movement. ROS: no HENSON, cp, sob, fever/chills/nausea/vomiting. course: Possible polyhydramnios (EL 24.33 on 10/19). Twin demise in the first trimester, resulting in single live IUP PMH: obesity, BMI = 40 SH: wisdom teeth Meds: vitamin, Zofran All: [employer] HEALTHCARE MANAGEMENT CONSULTANT: No STI or dysplasia OB: G1, 2019: at 41 weeks, uncomplicated. Sochx: No tobacco, alcohol or drug use FamHx: HTN, DM2 (father) labs: Blood type O neg , antibody screen negative, HepBsAg neg, HIV neg, rubella immune, Hep C antibody negative, RPR nonreactive, CT/GC neg, urine culture negative, 1 hour glucose challenge test 113, GBS negative imaging: no anomalies or placental abnormalities [facility]) Past Medical History Allergies Coded Allergies: erythromycin base (Verified Allergy, Unknown, 11/19/20) RASH Medications Scheduled No.137/Iron/Folic Acd ( Vitamin Tablet) 1 Each Tablet, 1 TAB PO DAILY Physical Examination Physical Examination GENERAL: Alert and oriented times three. BREAST: . ABDOMEN: Gravid and non-tender to touch. FETUS: Is vertex (VTX) by sterile vaginal examination (SVE), fetus is vertex (VTX) by Yves. HEART RATE: Regular rate and rhythm. LUNGS: Clear to auscultation (CTA). EXTREMITIES: No edema. No clonus. SVE: 4cm, 75, -3; bulging membranes, cephalic. EFM: Cat I [place]: ctxs every 5 minutes Vital Signs/I&O Vital Signs Date Time Temp Pulse Resp B/P (MAP) Pulse Ox O2 Delivery O2 Flow Rate FiO2 11/19/20 17:24 98.5 98 16 130/86 (101) Laboratory Data 24H LABS Laboratory Tests 2 11/19/20 18:52: Serology Scanned Report Hepatitis B Testing 11/19/20 19:25: Nucleated Red Blood Cells % (auto) 0.0 CBC/BMP Laboratory Tests 11/19/20 19:25 Assessment/Plan Assessment 30-year old at 39+4 weeks gestation. Dx: Early active labor, possible polyhydramnios. Reassuring maternal and status. Plan Admit and orient. Routine labs/orders Augment labor with Pitocin as needed Mode of delivery plan: ; as indicated. ANDRIY AC DO Nov 19, 2020 20:30
[2020-11-20] VITALS (9 sets, daily range): BP systolic 118–146; BP diastolic 68–80
[2020-11-20] MEDS ORDERED: LR 1,000 ML IV SCH (00:09)
[2020-11-20] MEDS ORDERED: OXYTOCIN DRIP 30 UNITS in IV 1 EA IV SCH (00:09)
[2020-11-20] MEDS ORDERED: IBUPROFEN 600MG TAB PO PRN (00:15)
[2020-11-20] MEDS ORDERED: LIDOCAINE 1% MDV 20ML VIAL INFIL ONE ×2 (00:15→17:45)
[2020-11-20] MEDS ORDERED: ACETAMINOPHEN TAB 650MG DOSE (2X325MG) PO PRN (00:15)
[2020-11-20] MEDS ORDERED: BENZOCAINE 20% HEMORRHOIDAL OINTMENT 28GM TUBE TOP PRN (00:15)
[2020-11-20] MEDS ORDERED: MEASLES,MUMPS,RUBELLA VACCINE INJ (MMR-II) (90707) SC SCH (00:15)
[2020-11-20] MEDS ORDERED: RHOGAM 300 MCG (1500 IU) INJ (J2790) IM SCH (00:15)
[2020-11-20] MEDS ORDERED: DOCUSATE SODIUM 100MG CAPSULE PO PRN (00:15)
--- NOTE | 2020-11-20 00:15 | DNPDOC ---
[facility] Delivery Note Delivery Note DATE OF DELIVERY: 11/19/2020 TIME OF DELIVERY: 2351 Spontaneous vaginal delivery. NIGHT ORDER SELECTOR: Dr. Jens Boone DO FACOG ANESTHESIA: none (local lidocaine used for the repair) LACERATION: 2nd degree ESTIMATED BLOOD LOSS: 250 mL. FINDINGS: 9 pound 12 ounce (4412g) Female (Debby), Score 7 and 9. DELIVERY SUMMARY: The active phase and second stage of labor progressed in normal fashion.. She received Pitocin augmentation throughout her hospital labor course. The head delivered in the BELA position, and restituted LOT. No nuchal cord was noted. The anterior shoulder delivered with gentle downward guidance and the remainder of the body delivered with ease. The baby was placed on the patient's chest. Delayed cord clamping occurred for approximately 1 minute. The cord was then doubly clamped and cut. IV Pitocin was bolused to actively manage the third stage of labor. The placenta delivered intact without any difficulty within 10 minutes of delivery. The uterine fundus was noted to be firm and 2 cm below the umbilicus. The cervix, vagina, vulva and perineum were inspected. A second-degree laceration was noted and immediately repaired with 3-0 Vicryl in typical fashion, under local anesthesia. Excellent hemostasis was noted. Sponge, needle and instrument counts were correct per protocol. DO DENNY Mcdonald JONATHAN R. DO Nov 20, 2020 00:15
[2020-11-20] MEDS: IBUPROFEN 800 MG TAB PO PRN (02:39)
--- NOTE | 2020-11-20 07:44 | IPNPDOC ---
Progress Note Date of Service: Nov 20, 2020 Progress Note SUBJECT: Status post . She has been ambulating, voiding spontaneously without issue and tolerating regular diet. Lochia decreasing/minimal. Pain is well-controlled. Denies headache, visual changes, right upper quadrant pain, shortness breath or chest pain. OBJECTIVE: VITAL SIGNS: Within normal limits, afebrile. Alert and oriented times three. Abdomen: Fundus firm at U-2. Soft, NTTP. ASSESSMENT: Status post uncomplicated spontaneous vaginal delivery. Vitals within normal limits, afebrile, hemodynamically stable with no evidence of infection. PLAN: Discharge to home tomorrow Tylenol and Motrin for pain. Routine instructions/precautions reviewed. Routine PP visit in 6 weeks in clinic. VS, I&O, 24H, Fishbone Vital Signs/I&O Vital Signs Date Time Temp Pulse Resp B/P (MAP) Pulse Ox O2 Delivery O2 Flow Rate FiO2 11/20/20 06:00 98.2 103 18 146/69 (94) 98 Room Air I&O- Last 24 Hours up to 6 AM 11/20/20 06:00 Output Total 600 ml Balance -600 ml Laboratory Data 24H LABS Laboratory Tests 2 11/19/20 18:52: Serology Scanned Report Hepatitis B Testing 11/19/20 19:25: Nucleated Red Blood Cells % (auto) 0.0 CBC/BMP Laboratory Tests 11/19/20 19:25 ANDRIY AC DO Nov 20, 2020 07:44
[2020-11-20] MEDS: PRENATAL VITAMINS CHEWABLE TABLET PO SCH (08:11)
[2020-11-20] MEDS: ACETAMINOPHEN 500 MG TAB PO PRN ×2 (08:22→19:57)
[2020-11-21 05:48] VITALS: BP 122/66
[2020-11-21] MEDS: IBUPROFEN 800 MG TAB PO PRN (08:19)
[2020-11-21] MEDS: PRENATAL VITAMINS CHEWABLE TABLET PO SCH (09:07)
== END 2020-11-21 11:20 | disposition home or self-care (01) | DRG 560 ==
LOC: M LDO 16:50 → M LDI 18:43 → M OBS 11-20 02:23
PROVIDERS: ADMIT Obstetrics & Gynecology; ATTEND Obstetrics & Gynecology
PROC: 10E0XZZ Delivery of Products of Conception, External Approach (ICD-10-PCS; principal; 2020-11-19)
PROC: 0KQM0ZZ Repair Perineum Muscle, Open Approach (ICD-10-PCS; 2020-11-19)
DX: O70.1 Second degree perineal laceration during delivery (principal); Z3A.39 39 weeks gestation of pregnancy; Z37.0 Single live birth

== ENCOUNTER → 2021-02-14 | Outpatient (REF) | payer BC ==
[~2021-02-14] MED LIST: PRENTAB9 PO
== END ==
LOC: M SFHCWAGY 13:02
PROVIDERS: ATTEND Obstetrics & Gynecology
DX: Z12.4 Encounter for screening for malignant neoplasm of cervix (principal); Z01.419 Encounter for gynecological examination (general) (routine) without abnormal findings

== ENCOUNTER → 2022-08-11 | Outpatient (REF) | payer BC | LOC: M LAB REF 18:23 | PROVIDERS: ATTEND Physician Assistant | DX: J02.9 Acute pharyngitis, unspecified (principal) ==

== ENCOUNTER → 2024-06-01 | Outpatient (CLI) | payer BC | LOC: M RAD 13:57 | PROVIDERS: ATTEND Physician Assistant | DX: I83.812 Varicose veins of left lower extremity with pain (principal) ==